=== PATIENT | female | born 1945 | race Caucasian/White ===

== ENCOUNTER 2018-01-31 10:24 | Emergency (ER) | payer MEDICARE ==
[~2018-01-31] VITALS: Ht 167.6 cm; Wt 73.6 kg
[2018-01-31 10:42] VITALS: Ht 167.6 cm; Wt 73.6 kg
[2018-01-31] MEDS ORDERED: MEDROL DOSE PACK4 MG PO (10:44)
[2018-01-31] MEDS ORDERED: VOLTAREN75 MG PO (10:45)
[2018-01-31] MEDS ORDERED: VALIUM 2 MG TAB2 MG PO (13:16)
[2018-01-31] MEDS ORDERED: ULTRAM50 MG PO (13:16)
[2018-01-31 13:39] VITALS: BP 187/65
== END 2018-01-31 13:23 | disposition home or self-care (01) ==
LOC: D.ER 10:24
DX: S39.012A Strain of muscle, fascia and tendon of lower back, initial encounter (principal); X58.XXXA Exposure to other specified factors, initial encounter; Y93.89 Activity, other specified; Y92.019 Unspecified place in single-family (private) house as the place of occurrence of the external cause; M51.36 Other intervertebral disc degeneration, lumbar region; M47.896 Other spondylosis, lumbar region; K21.9 Gastro-esophageal reflux disease without esophagitis

== ENCOUNTER 2018-05-23 11:36 | Emergency (ER) | payer MEDICARE ==
[~2018-05-23] VITALS: Ht 167.6 cm; Wt 70.8 kg
[~2018-05-23 11:36] MED LIST: MEDROL DOSE PACK4 MG PO; ULTRAM50 MG PO; VALIUM 2 MG TAB2 MG PO; VOLTAREN75 MG PO
[2018-05-23 11:42] VITALS: Ht 167.6 cm; Wt 70.8 kg
[2018-05-23] MEDS ORDERED: PREDNISONE20 MG PO (12:18)
[2018-05-23] MEDS ORDERED: ZOFRAN ODT4 MG/UDTAB PO (12:18)
[2018-05-23 12:50] VITALS: BP 148/065
== END 2018-05-23 12:52 | disposition home or self-care (01) ==
LOC: D.ER 11:36
DX: M79.18 Myalgia, other site (principal); R11.0 Nausea

== ENCOUNTER 2020-02-10 15:29 | Emergency (ER) | payer MEDICARE ==
[~2020-02-10] VITALS: Ht 167.6 cm; Wt 68.2 kg
[~2020-02-10 15:29] MED LIST changes: +PREDNISONE20 MG PO; +ZOFRAN ODT4 MG/UDTAB PO
[2020-02-10 15:37] VITALS: Ht 167.6 cm; Wt 68.2 kg
[2020-02-10] MEDS ORDERED: EC-NAPROSYN500 MG PO (16:24)
[2020-02-10 17:21] VITALS: BP 172/72
== END 2020-02-10 17:22 | disposition home or self-care (01) ==
LOC: D.ER 15:29
DX: M17.12 Unilateral primary osteoarthritis, left knee (principal); K21.9 Gastro-esophageal reflux disease without esophagitis